=== PATIENT | female | born 1985 | race Caucasian/White ===

== ENCOUNTER → 2016-09-22 | Outpatient (CLI) | payer OTHER ==
[~2016-09-22] MED LIST: BENTYL20 MG PO; CIPRO PO; FIORICET1 TAB PO; MOTRIN600 M1 PO; NO MEDICATIONS; PHENERGAN25 M1 PO; VICODIN 5/500 T1 TAB PO; ZOFRAN ODT4 MG PO
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
== END | disposition home or self-care (01) ==
LOC: SMRI 08:54
DX: M25.511 Pain in right shoulder (principal); M75.91 Shoulder lesion, unspecified, right shoulder; M75.51 Bursitis of right shoulder; V89.2XXA Person injured in unspecified motor-vehicle accident, traffic, initial encounter
CPT/HCPCS: 73221